=== PATIENT | female | born 1985 | race Caucasian/White ===

== ENCOUNTER 2022-12-26 10:58 | Outpatient (OUT) | payer BC, SELFPAY ==
--- NOTE | 2022-12-26 11:07 | US_ITS ---
The [address] [address] Patient Name: RIVAS ISRAEL MRN: [id number] date: 1985 Sex: F Assigned Patient Location: US Current Patient Location: US Accession/Order Number: [id number] Exam Date: 12/26/2022 11:08 Report Date: 12/26/2022 12:55 At the request of: MARSHA POWELL Procedure: US pelvis w/ transvaginal EXAMINATION: US pelvis w/ transvaginal HISTORY: Irregular Menstrual Cycle N92.6 ; breakthrough bleeding; evaluate IUD placement COMPARISON: Ultrasound pelvis 11/26/2021 TECHNIQUE: Transabdominal and/or transvaginal sonographic examination was performed as indicated by examination type. FINDINGS: UTERUS: Obliquely positioned IUD within cervix and lower uterine segment. Normal size, contour, and echotexture of the uterus. Uterus size: 7.9 x 4.6 x 4.0 cm ENDOMETRIUM: Normal homogeneous appearance. Endometrial thickness: 4 mm RIGHT OVARY: Normal size and appearance. Duplex Doppler demonstrates normal waveform and flow; resistive index 0.6. Ovary size: 3.6 x 2.7 x 1.6 cm LEFT OVARY: Normal size and appearance. Duplex Doppler demonstrates normal waveform and flow; resistive index 0.6. Ovary size: 3.9 x 2.1 x 1.4 cm CUL-DE-SAC: Unremarkable. No significant free fluid. BLADDER: Unremarkable. OTHER: Prominent vessels within left pelvis; possibly pelvic vascular congestion. US/US pelvis w/ transvaginal IMPRESSION: 1. Patient's IUD is positioned obliquely within the cervix and lower uterine segments which may contribute patient's symptoms. Electronically authenticated by: CORNELIUS MUJICA Date: 12/26/2022 12:55
== END 2022-12-26 10:59 | disposition home or self-care (01) ==
PROVIDERS: Visit Provider Obstetrics & Gynecology
DX: N92.6 Irregular menstruation, unspecified (principal); Z97.5 Presence of (intrauterine) contraceptive device
CPT/HCPCS: 76830; 76856

== ENCOUNTER 2024-10-20 15:13 | Outpatient (REF) | payer OTHER, SELFPAY ==
--- OUTSIDE RECORDS SUMMARY | 2024-10-20 09:00 | XMS_ITS | Encounter Summary ---
Author Organization [facility] Address [address] [facility] [place] [address] Care Team Providers Care Account Services Specialist Name Role Phone Natalie Guillen MD, IBCLC Primary Care Provid er Reason for Visit * Reason Comments Gynecologic Exam Encounter Details Date Type Department Care Team (Late st Contact Info) Description 10/20/2024 9:00 AM EDT Office Visit [facility] [address] [place] [address] Ethel Quiroz PA [address] [place] [address] Well woman exam with routine gynecological exam; Breast lump on right side at 9 o'clock position Social History Tobacco Use Types Packs/Day Years Used Date Smoking Tobacco: Never Smokeless Tobacco: Never Alcohol Use Standard Drinks/Week Comments Yes 5 (1 standard drink = 0.6 oz pur e alcohol) B1300 Health Literacy Answer Date Recor ded How often do you need to hav e someone help you when you read instructions, pamphlets, or other written material from your doctor or pharmacy? Never 04/14/2024 Humiliation, Afraid, Rape, and Kick questionnair e Answer Date Recorded Within the last year, have y ou been afraid of your partner or ex-partner? No 02/03/2023 Within the last year, have y ou been humiliated or emotionally abused in other ways by your partner or ex-partner? No Within the last year, have y ou been kicked, hit, slapped, or otherwise physically hurt by your partner or ex-partner? No 02/03/2023 Within the last year, have y ou been raped or forced to have any kind of sexual activity by your partner or ex-partner? No 02/03/2023 Social Connection and Isolat ion Panel [NHANES] Answer Date Recorded In a typical week, how many times do you talk on the phone with family, friends, or neighbors? Twice a week 04/14/2024 How often do you get togethe r with friends or relatives? Once a week 04/14/2024 How often do you attend chur or baptism services? Patient declined 04/14/2024 Do you belong to any clubs o r organizations such as taoism groups, unions, fraternal or athletic groups, or school groups? Yes 04/14/2024 How often do you attend meet ings of the clubs or organizations you belong to? More than 4 times per year 04/14/2024 Are you , , di vorced, , never , or living with a partner? 04/14/2024 AUDIT-C Answer Date Recorded Q1: How often do you have a drink containing alc ohol? 2-3 times a week 04/14/2024 Q2: How many drinks containi ng alcohol do you have on a typical day when you are drinking? 1 or 2 04/14/2024 Q3: How often do you have si x or more drinks on one occasion? Never 04/14/2024 Overall Financial Resource Strain (CARDIA) Answe r Date Recorded How hard is it for you to pa y for the very basics like food, housing, medical care, and heating? Not hard at all 04/14/2024 PHQ-2 Answer Date Recorded Patient Health Questionnaire-2 Score 0 06/24/2024 [facility] of Occupat ional Health - Occupational Stress Questionnaire Answer Date Recorded Do you feel stress - tense, restless, nervous, or anxious, or unable to sleep at night because your mind is troubled all the time - these days? Rather much 04/14/2024 Exercise Vital Sign Answer Date Recorde d On average, how many days pe r week do you engage in moderate to strenuous exercise (like a brisk walk)? 0 days 04/14/2024 On average, how many minutes do you engage in exercise at this level? 0 min 04/14/2024 Hunger Vital Sign Answer Date Recorded Within the past 12 months, y ou worried that your food would run out before you got the money to buy more. Never true 04/14/19 Within the past 12 months, t he food you bought just didn't last and you didn't have money to get more. Never true 04/14/2024 PRAPARE - Transportation Answer Date Re corded In the past 12 months, has l ack of transportation kept you from medical appointments or from getting medications? No 11/2024 In the past 12 months, has l ack of transportation kept you from meetings, work, or from getting things needed for daily living? No 04/14/2024 Housing Stability Vital Sign Answer Aman e Recorded In the last 12 months, was t here a time when you were not able to pay the mortgage or rent on time? No 02/03/2023 In the last 12 months, how many places have you lived? 1 02/03/2023 In the last 12 months, was t here a time when you did not have a steady place to sleep or slept in a chcf (including now)? No 02/03/2023 Housing Stability Vital Sign Answer Aman e Recorded In the last 12 months, was t here a time when you were not able to pay the mortgage or rent on time? No 04/14/2024 In the past 12 months, how m any times have you moved where you were living? 0 04/14/2024 At any time in the past 12 m [facility], were you homeless or living in a chcf (including now)? No 04/14/2024 Comments Unknown Sex and Gender Information Value Date Recorded Sex Assigned at Female 12/30/2022 9:37 AM EDT Legal Sex Female 11:39 PM EDT Gender Identity Female 12/30/2022 9:37 AM EDT Sexual Orientation Not on file documented as of this encounter Last Filed Vital Signs Vital Sign Reading Time Taken Comments Blood Pressure 118/72 10/20/2024 9:56 AM EDT Pulse - - Temperature - - Respiratory Rate - - Oxygen Saturation - - Inhaled Oxygen Concentration - - Weight 59 kg (130 lb) 10/20/2024 9:56 AM EDT Height 170.2 cm (5' 7 ) 10/20/2024 9:56 AM EDT Body Mass Index 20.36 10/20/2024 9:56 AM EDT documented in this encounter Progress Notes * STEVE Avila - 10/20/2024 9:00 AM EDT Reason for Appointment: Patient ID: Monique Olivares is a 39 y.o. female who presents for Gynecologic Exam Patient presents today for Annual Exam. MEDICATIONS Current Outpatient Medications Medication Instructions hydrOXYzine HCl (ATARAX) 10 mg, Oral, Every 8 hours PRN loratadine (Claritin) 10 MG tablet Every 24 hours sertraline (ZOLOFT) 25 mg, Oral, Daily ALLERGIES Allergies Allergen Reactions Sodium Tetradecyl Sulfate Other, Shortness of breath and Anaphylaxis Other reaction(s): Respiratory Issues Other Reaction(s): Other: See Comments Esomeprazole Itching Nitrofurantoin Itching Other reaction(s): Unknown Other reaction(s): Unknown Other reaction(s): Unknown Other Reaction(s): Rash Other reaction(s): Unknown Other reaction(s): Unknown Other reaction(s): Unknown Other reaction(s): Unknown Other reaction(s): Unknown Propylene Glycol Itching and Rash Other reaction(s): Dermatitis Other reaction(s): Dermatitis Other reaction(s): Dermatitis Ranitidine Itching Other reaction(s): Unknown Effexor [Venlafaxine] Hot flash, presyncope Kiwi Extract Unknown Other reaction(s): Other (See Comments) Soy Allergy (Obsolete) felt like I had asthma attack after drinking soy milk Nickel Unknown and Rash Other reaction(s): Dermatitis PROBLEMS Active Ambulatory Problems Diagnosis Date Noted Anxiety 07/12/2021 Seasonal allergies 02/03/2023 Thyroid nodule 09/04/2016 Varicose veins of lower extremity 01/25/2021 Folliculitis 08/26/2023 Lymphedema 08/26/2023 Chondromalacia, patella, 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 10/03/2023 Acne vulgaris 04/16/2024 Sterilization consult 09/20/2024 Seasonal affective disorder 09/20/2024 History of blood clots 09/20/2024 History of defect 09/20/2024 Resolved Ambulatory Problems Diagnosis Date Noted AVM (arteriovenous malformation) ([facility]) 05/05/2019 Fibroadenoma of breast, right 05/17/2019 Fibrocystic breast changes, bilateral 05/17/2019 Generalized anxiety disorder 02/03/2023 History of vascular surgery 07/08/2011 Impairment of balance 01/25/2021 Skin lesion 01/25/2021 Acute pain of left knee 09/26/2023 Past Medical History: Diagnosis Date 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[facility]) Depression History of being hospitalized 2006 Intrauterine device surveillance HISTORY PAST MEDICAL HISTORY SOCIAL HISTORY Past Medical History: Diagnosis Date Anxiety 07/12/2021 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 Intrauterine device surveillance Thyroid nodule Thyroid nodules bilaterally Social History Tobacco Use Smoking status: Never Smokeless tobacco: Never Vaping Use Vaping status: Never Used Substance Use Topics Alcohol use: Yes Alcohol/week: 5.0 standard drinks of alcohol Types: 5 Cans of beer per week Drug use: Never FAMILY HISTORY Family History Problem Relation Name Age of Onset Arthritis Mother Beatriz Hypertension Mother Beatriz Heart disease Father Gabino Hypertension Father Gabino Kidney disease Father Gabino Hypertension Maternal Grandfather Cancer Paternal Grandmother SURGICAL HISTORY Past Surgical History: Procedure Laterality Date BREAST BIOPSY x2 OTHER SURGICAL HISTORY first rib ressection US BIOPSY NEEDLE THYROID 2019 REVIEW OF SYSTEMS Review of Systems: Review of Systems Constitutional: Negative. HENT: Negative. Eyes: Negative. Respiratory: Negative. Cardiovascular: Negative. Gastrointestinal: Negative. Genitourinary: Negative. Musculoskeletal: Negative. Skin: Negative. Neurological: Negative. All other systems reviewed and are negative. Hematological: Negative. Endocrine: Negative. Allergic/Immunologic: Negative. OBJECTIVE Objective: Physical Exam Constitutional: Appearance: Normal appearance. She is well-developed. Genitourinary: Vulva normal. Right Adnexa: not tender and no mass present. Left Adnexa: not tender and no mass present. No cervical discharge. Breasts: Breasts are soft. Right: Normal. Left: Normal. HENT: Head: Normocephalic. Nose: Nose normal. Mouth/Throat: Mouth: Mucous membranes are moist. Cardiovascular: Rate and Rhythm: Normal rate and regular rhythm. Pulmonary: Effort: Pulmonary effort is normal. Breath sounds: Normal breath sounds. Abdominal: General: Bowel sounds are normal. There is no distension. Palpations: Abdomen is soft. Tenderness: There is no abdominal tenderness. There is no guarding or rebound. Musculoskeletal: General: No swelling. Normal range of motion. Cervical back: Normal range of motion. Right lower leg: No edema. Left lower leg: No edema. Neurological: General: No focal deficit present. Mental Status: She is alert and oriented to person, place, and time. Skin: General: Skin is warm and dry. Psychiatric: Mood and Affect: Mood normal. Behavior: Behavior normal. Vitals and nursing note reviewed. Exam conducted with a die machine operator present. Vitals: Estimated body mass index is 20.36 kg/m² as calculated from the following: Height as of this encounter: 5' 7 . Weight as of this encounter: 130 lb. BP: 118/72 Patient's last menstrual period was 10/12/2024 (exact date). ASSESSMENT & PLAN ICD-10-CM 1. Well woman exam with routine gynecological exam Z01.419 THIN PREP TIS PAP AND HR HPV DNA 2. Breast lump on right side at 9 o'clock position N63.15 Right breast US complete Annual: Patient presents today for an annual exam. Patient states she is doing well and has no complaints. Pap was obtained without difficulty and patient mammogram was done on 07/05/2024 w/negative results.Pt does have a questionable spot on her right breast she would like Ethel Quiroz to take a look at. Ptstates she does have dense breasts however, she would like Ethel Quiroz to exam that spot. Ethel Quiroz or ernesto an US of right breast at the 9 o'clock. Orders Placed This Encounter Procedures Right breast US complete Follow Up: Patient is to return in one year for annual unless needed otherwise. Documented by Natty Andrea MA on behalf of: STEVE Avila documented in this encounter Plan of Treatment Upcoming Encounters Date Type Department Care Team (Late st Contact Info) Description 11/11/2024 8:50 AM EDT Consult [facility] [address] [place] [address] Rashaun Dotson, DO [address] [place] [address] 07/07/2025 9:30 AM EDT Ancillary Procedure [facility] [place] [address] [place] [phone] 10/24/2025 9:00 AM EDT Procedure Visit [facility] [address] [place] [address] Ethel Quiroz PA [address] [place], [place] [phone] Scheduled Orders Name Type Priority Associated Diagnoses Orde r Schedule THIN PREP TIS PAP AND HR HPV DNA Pathology and Cytology Routine Well woman exam with routine gynecological exam Ordered: 10/20/2024 Right breast US complete Imaging Routine Breast lump on right side at 9 o'clock position Expected: 10/20/2024 (Approximate), Expires: 12/21/2025 documented as of this encounter Goals Goal Patient Goal Type Associated Problems Recent Progress Patient-Stated? Author Help patient manage antidepressant medication Care Plan Patient on antidepressant monitoring plan No Natalie Guillen MD, IBCLC Baseline PHQ-9 Care Plan Baseline PHQ-9 No Natalie Guillen MD, IBCLC documented as of this encounter Visit Diagnoses Diagnosis Well woman exam with routine gynecological exam Routine gynecological examination Breast lump on right side at 9 o'clock position Lump or mass in breast documented in this encounter Additional Health Concerns Active Problems Noted Date Diagnosed Date Patient on antidepressant monitoring plan 2024 Baseline PHQ-9 06/24/2024 documented as of this encounter Care Teams Account Services Specialist Relationship Specialty Start Date End Date Natalie Guillen MD, IBCLC [address] [place] [address] PCP - General Family Medicine 04/13/24 documented as of this encounter
--- OUTSIDE RECORDS SUMMARY | 2024-10-20 15:16 | XMS_ITS | Encounter Summary ---
Author Organization [facility] Address [address] [facility] [place] [address] Care Team Providers Care Skin Toggler Name Role Phone aNtalie Guillen MD, IBCLC Primary Care Provid er Encounter Details Date Type Department Care Team (Late st Contact Info) Description 09/13/2024 Results Follow-Up [facility] [address] [place] [address] Natalie Guillen MD, IBCLC [address] [place], [place] [phone] Social History Tobacco Use Types Packs/Day Years [...] How often do you attend chur or pentecostal services? Patient declined 04/14/2024 Do you belong to any clubs o r organizations such as mandaen groups, unions, fraternal or athletic groups, or [...] Recorded Patient Health Questionnaire-2 Score 0 06/24/2024 [facility] Occupat ional Health - Occupational Stress [...] money to buy more. Never true 04/14/19 25 Within the past 12 months, t he [...] place to sleep or slept in a assisted (including now)? No 02/03/2023 Housing Stability Vital Sign Answer Aman e Recorded In the last 12 months, was t here a time when you were not able to pay the mortgage or rent on time? No 04/14/2024 In the past 12 months, how m any times have you moved where you were living? 0 04/14/2024 At any time in the past [address] [facility], were you homeless or living in a assisted (including now)? No 04/14/2024 Comments Unknown Sex and Gender Information Value Date Recorded Sex Assigned at Female 12/30/2022 9:37 AM EDT Legal Sex Female 11:39 PM EDT Gender Identity Female 12/30/2022 9:37 AM EDT Sexual Orientation Not on file documented as of this encounter Plan of Treatment Upcoming Encounters Date Type Department Care Team (Late st Contact Info) Description 11/11/2024 8:50 AM EDT Consult [facility] [address] [place] [phone] Rashaun Dotson, DO [address] [place] [address] 07/07/2025 9:30 AM EDT Ancillary Procedure [facility] [place] [address] [place] [address] 10/24/2025 9:00 AM EDT Procedure Visit [facility] [address] [place] [address] Ethel Quiroz PA [address] [place] [address] documented as of this encounter Goals Goal Patient Goal Type Associated Problems Recent Progress Patient-Stated? Author Help patient manage antidepressant medication Care Plan Patient on antidepressant monitoring plan No Natalie Guillen MD, IBCLC Baseline PHQ-9 Care Plan Baseline PHQ-9 No Natalie Guillen MD, IBCLC documented as of this encounter Visit Diagnoses Not on filedocumented in this encounter Additional Health Concerns Active Problems Noted Date Diagnosed Date Patient on antidepressant monitoring plan 2024 Baseline PHQ-9 06/24/2024 documented as of this encounter Care Teams Skin Toggler Relationship Specialty Start Date End Date Natalie Guillen MD, IBCLC [address] [place] [address] PCP - General Family Medicine 04/13/24 documented as of this encounter
--- OUTSIDE RECORDS SUMMARY | 2024-10-20 15:16 | XMS_ITS | Encounter Summary ---
Author Organization [facility] Address [address] [place] [id number] Care Team Providers Care Mirror Specialist Name Role Phone Dawson Hunter Primary Care Provider [phone] Source Comments In the event this information is protected by the Federal Confidentiality of Alcohol and Drug AbusePatient Records regulations: The Federal rules restrict any use of the information to criminally investigate or prosecute any alcohol or drug abuse patient.[facility] Encounter Details Date Type Department Care Team (Late st Contact Info) Description 03/15/2024 Patient [facility] [address] [address] [place] Vance RPh At your next appointment, choose [facility]. Social History Tobacco Use Types Packs/Day Years Used Date Smoking Tobacco: Never Assessed Comments Unknown Sex and Gender Information Value Date Recorded Sex Assigned at Not on file Legal Sex Female 9:28 AM EST Gender Identity Not on file Sexual Orientation Not on file documented as of this encounter Plan of Treatment Not on file documented as of this encounter Visit Diagnoses Not on filedocumented in this encounter Care Teams Mirror Specialist Relationship Specialty Start Date End Date Dawson Hunter [address] [place] [id number] PCP - General 07/15/00 documented as of this encounter
--- OUTSIDE RECORDS SUMMARY | 2024-10-20 15:16 | XMS_ITS | Clinical Summary ---
Author Organization [facility] Address [address] [place] [address] Care Team Providers Care Cheese Grader Name Role Phone Darnell Lyons MD Primary Care Provider Darnell Lyons MD Unavailable [phone] Darnell Lyons MD Unavailable [phone] AugustLyndsay MD Unavailable [phone] Allergies Active Allergy Reactions Criticality Noted Date Comments Kiwi Other (See Comments) 01/25/2021 Esomeprazole Magnesium Itching 08/31/2016 Nickel Dermatitis 02/03/2015 Nitrofurantoin Monohyd/M-Cryst Itching 06/12/2018 Other reaction(s): Unknown Propylene Glycol Dermatitis 02/03/2015 Ranitidine Itching 06/29/2016 Sodium Tetradecyl Sulfate Shortness Of Breath High 02/03/2015 Soy 06/18/2018 felt like I had asthma attack after drinking soy milk Medications EPINEPHrine (EPIPEN) 0.3 mg/0.3 mL AtIn Inject 3 mg into the shoulder, thigh, or buttocks as needed. 8 Active loratadine (CLARITIN ORAL) Take by mouth . Active sertraline (ZOLOFT) 25 MG tablet Take 25 mg by mouth nightly . 1 Active levonorgestreL (MIRENA) 20 mcg/24 hours (7 yrs) 52 mg IUD 1 (one) each by Intrauterine route once . Active miSOPROStoL (CYTOTEC) 200 MCG tablet Break [address] tablets [address] half and place in vagina night before procedure . 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 Fibrocystic breast changes, bilateral 05/17/2019 Resolved Problems Problem Noted Date Diagnosed Date Resolved Date Status post excisional biopsy 11/05/2018 10/18/2020 Left breast mass 11/05/2018 05/17/2019 Fibroadenoma of breast, right 06/03/2017 11/05/2018 Fibrocystic breast changes, right 06/03/2017 10/18/2020 Family History Medical History Relation Comments No Known Problems Brother Thyroid cancer Cousin Heart disease Father Liver cancer Maternal Grandmother No Known Problems Mother No Known Problems Other Breast cancer Paternal Grandmother No Known Problems Sister Anesthesia problems Neg Hx Clotting disorder Neg Hx Deep vein thrombosis Neg Hx Pulmonary embolism Neg Hx Surgical complications Neg Hx Relation Status Comments Brother Cousin Alive Father Alive Maternal Grandmother (Age 84) Mother Alive Other Paternal Grandmother Alive Sister Social History Tobacco Use Types Packs/Day Years Used Date Smoking Tobacco: Never Smokeless Tobacco: Never Tobacco Cessation:Counseling Given: Not Answered Alcohol Use Standard Drinks/Week Comments Yes 0 (1 standard drink = 0.6 oz pur e alcohol) weekly Comments No Sex and Gender Information Value Date Recorded Sex Assigned at Not on file Legal Sex Female 6:54 AM EDT Gender Identity Female 11/21/2017 1:32 PM EDT Sexual Orientation Choose not to disclose 2018 6:17 PM EDT 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 file Not on file Not on file Last Filed Vital Signs Vital Sign Reading Time Taken Comments Blood Pressure 135/73 12/11/2021 6:12 PM EDT Pulse 118 12/11/2021 6:12 PM EDT Temperature 36.7 C (98.1 F) 12/11/2021 6:12 PM EDT Respiratory Rate 18 12/11/2021 6:12 PM EDT Oxygen Saturation 100% 12/11/2021 6:12 PM EDT Inhaled Oxygen Concentration - - Weight 51.3 kg (113 lb) 12/11/2021 6:12 PM EDT Height 170.2 cm (5' 7 ) 12/11/2021 6:12 PM EDT Body Mass Index 17.7 12/11/2021 6:12 PM EDT Plan of Treatment Health Maintenance Due Date Last Done Comments Depression Screening/Follow-Up (PHQ-2/9) 1995 Wellness Visit 07/12/2022 07/12/2021, 10/05, 12/21/2018 Mammogram 2023 06/18/2018, 10/2018, 09/06/2016, Additional history exists Pap Smear 10/19/2023 10/18/2020, 12/06, 05/31/2016, Additional history exists COVID-19 Vaccine ( season) 2023 01/27/2021, 07/06/2020 Cervical Cancer Screening 12/22/2023 HPV/Cotest 12/22/2023 12/21/2018 Tetanus: Every 10yrs 10/05/2024 10/05/2014, 10/06/19 14 Influenza Vaccine (#1) 2024 , 01/01/2020, 01/28/2019, Additional history exists HIV Screening Completed 01/23/2015 Hepatitis C Screening Completed 01/23/2015 Pneumococcal Vaccine: Ped or At-Risk Aged Out No longer eligible based on patient's age to complete this topic Procedures Procedure Name Priority Date/Time Associated Diagnosis Comments THINPREP PAP SMEAR Routine 10/18/2020 12 :04 PM EDT Screening for malignant neoplasm of cervix REFLEX ONLY -- HIGH RISK HPV WITH GENOTYPE 16,18 Routine 12/21/2018 10:14 AM EDT Screening for malignant neoplasm of cervix MM BREAST SPECIMEN Routine 06/18/2018 10 :23 AM EDT HIV 1/2 SCREEN (4TH GENERATION) Routine 01/23/2015 10:39 AM EDT Routine general medical examination at a health care facility HEPATITIS C ANTIBODY Routine 01/23/2015 10:39 AM EDT Routine general medical examination at a health care facility from Last 3 Months or Most Recently Relevant to Health Maintenance Results * Thinprep Pap Smear (10/18/2020 12:04 PM EDT) Case Report Gynecologic Cytology Report Case: [id number] Authorizing Provider: Arianna Holliday CNP Collected: 10/18/2020 12:04 PM [facility]ing [facility]DROGRAP[facility] Received: 10/19/2020 08:23 PM [facility] First Screen: Sendy Oseguera [facility] Rescreen: Rose Patel Specimen: THINPREP PAP SMEAR, Cervix / Endocervix 10/30/2020 8:57 PM EDT [facility] LMP 09/29/20 10/30/2020 8:57 PM EDT [facility] Interpretation Negative for intraepithelial lesion or malignancy 10/30/2020 8:57 PM EDT [facility] at 2057 EDT Specimen Adequacy Satisfactory for evaluation; transformation zone/endocervical component present 10/30/2020 8:57 PM EDT [facility] Educational Note The Pap smear is a screening test for the detection of cervical cancer and its precursor lesions. False positive and false negative results can occur. The test should be performed at regular intervals, and positive results should be confirmed before definitive therapy. Additional testing methods may be helpful in detecting abnormalities or in clinical management. The specimen has been analyzed by the ThinPrep imaging system, an automated imaging and review system which assists the laboratory in evaluating cells on ThinPrep tests. Following automated imaging selected danielson from every slide are reviewed by a marking room supervisor. Specimen processing and Primary Screening performed at: [facility] - [address] [place] [id number] 10/30/2020 8:57 PM EDT [facility] IUD Yes 10/30/2020 8:57 PM EDT [facility] Pap, Liquid Based ENDOCERVICAL STRUCTURE / Unknown 10/18/2020 12:04 PM EDT 10/19/2020 8:23 PM EDT Arianna Holliday CNP PATHOLOGY/CYTOLOGY ORDERABLES Final Result [facility] [place] [address] * High Risk HPV with Genotype 16,18 (12/21/2018 10:14 AM EDT) HPV 16 Negative Negative 12/24/2018 1:11 PM EDT [facility] HPV 18 Negative Negative 12/24/2018 1:11 PM EDT [facility] HPV, Other HR Types Negative Negative 12/24/2018 1:11 PM EDT [facility] Pap, Liquid Based ENDOCERVICAL STRUCTURE / Unknown 12/21/2018 10:14 AM EDT 12/22/2018 4:33 PM EDT Narrative [facility] - 12/24/2018 1:11 PM EDT Assay performed using Micheal Yesenia 4800 system utilizing Real-Time PCR to amplify target HPV DNA. This system specifically identifies HPV16 and HPV18 while concurrently detecting the other twelve high risk types (31,33,35,39,45,51,52,56,58,59,66,68). us Jennifer Farley MANAGEMENT TECH BODY FLUIDS AND S TOOLS ORDERABLES Final Result Performing Organization Address [facility] Co de Phone Number [facility] [place] [address] * Mammography Breast Specimen (06/18/2018 10:23 AM EDT) Anatomical Region Laterality Modality Breast N/A Mammography 06/18/2018 10:5 8 AM EDT Impressions 06/18/2018 11:29 AM EDT A single specimen radiograph was submitted. The sample of breast tissue does contain the biopsy clip at the coordinates I-8. This is located within 1.6 mm of the margin of the sample. DPZ/ads Workstation ID: [id number] Narrative 06/18/2018 11:29 AM EDT EXAMINATION: BREAST SPECIMEN RADIOGRAPH HISTORY: Right breast mass excision with intraoperative ultrasound; specimen imaging Procedure Note Paul Reis MD - 06/18/2018 EXAMINATION: BREAST SPECIMEN RADIOGRAPH HISTORY: Right breast mass excision with intraoperative ultrasound; specimenimaging IMPRESSION: A single specimen radiograph was submitted. The sample of breast tissuedoes contain the biopsy clip at the coordinates I-8. This is locatedwithin 1.6 mm of the margin of the sample. CARL/paul Workstation ID: [id number] us Aurora Martinez MD IMG MAMMOGRAPHY ORDERAB LES Final Result * Hepatitis C Antibody (01/23/2015 10:39 AM EDT) Hepatitis C Ab Negative Negative 01/23/2015 7:51 PM EDT [facility] Blood BLOOD SPECIMEN / Unknown Venipuncture / Unknown 01/23/2015 10:39 AM EDT 01/23/2015 10:39 AM EDT Erika Quintero [facility] BLOOD ORDERABLE S Final Result Performing Organization Address [facility]/ZIP Co de Phone Number [facility] [address] [place] [phone] * HIV Antibody (HIV1/HIV2) (01/23/2015 10:39 AM EDT) HIV 1-2 Screen Negative Negative 01/23/2015 7:51 PM EDT [facility] Blood BLOOD SPECIMEN / Unknown Venipuncture / Unknown 01/23/2015 10:39 AM EDT 01/23/2015 10:39 AM EDT Erika Quintero [facility] BLOOD ORDERABLE S Final Result Performing Organization Address City/[facility]/ZIP Co de Phone Number [facility] [address] [place] [phone] from Last 3 Months or Most Recently Relevant to Health Maintenance Insurance [facility] H[employer]/CHOICE PLUS/JASWANT/JASWANT PLUS [employer] [employer] HMO/CHOICE PLUS/JASWANT/JASWANT PLUS Care Teams Cheese Grader Relationship Specialty Start Date End Date Darnell Lyons MD [address] [place] [address] PCP - General Family Medicine 09/06/16 Darnell Lyons MD [address] [place] [address] 09/06/16 Darnell Lyons MD [address] [place] [address] 07/08/15August, Lyndsay Macedo MD [address] [facility] [address] [place] [address] Obstetrics/Gynecology 12/24/21
--- OUTSIDE RECORDS SUMMARY | 2024-10-20 15:16 | XMS_ITS | Encounter Summary ---
Author Organization [facility] Address [address] [place] [address] Care Team Providers Care Radiation Officer Name Role Phone Natalie Guillen MD, IBCLC Primary Care Provid er Encounter Details Date Type Department Care Team (Latest Contact Info) Description 10/16/2024 Travel Social History Tobacco Use Types Packs/Day Years [...] 04/14/2024 How often do you attend chur ch or religion services? Patient declined 04/14/2024 Do you belong to any clubs o r organizations such as tenriism groups, unions, fraternal or athletic groups, or [...] Recorded Patient Health Questionnaire-2 Score 0 06/24/2024 [facility] - Occupational [...] place to sleep or slept in a snf (including now)? No 02/03/2023 Housing Stability Vital Sign Answer Aman e Recorded In the last 12 months, was t here a time when you were not able to pay the mortgage or rent on time? No 04/14/2024 In the past 12 months, how m any times have you moved where you were living? 0 04/14/2024 At any time in the past 12 m [facility], were you homeless or living in a snf (including now)? No 04/14/2024 Comments Unknown Sex [...] Description 11/11/2024 8:50 AM EDT Consult [facility] [address] [place] [address] Rashaun Dotson, DO [address] [place], [place] [id number] 07/07/2025 9:30 AM EDT Ancillary Procedure [facility] [place] [address] [place] [id number] 10/24/2025 9:00 AM EDT Procedure Visit [facility] [address] [place] [address] Ethel Quiroz PA [address] [place] [address] [place] [address] documented as of this encounter Goals Goal [...] documented as of this encounter Care Teams Radiation Officer Relationship Specialty Start Date End Date Natalie Guillen MD, IBCLC [address] [place] [phone] PCP - General Family Medicine 04/13/24 documented as of this encounter
--- OUTSIDE RECORDS SUMMARY | 2024-10-20 15:16 | XMS_ITS | Encounter Summary ---
Author Organization [facility] Address [address] [place] [address] Care Team Providers Care Legal Writing Professor Name Role Phone Dale Dawson Vela Primary Care Provider [phone] Source Comments In the event this information is protected by the Federal Confidentiality of Alcohol and Drug AbusePatient Records regulations: The Federal rules restrict any use of the information to criminally investigate or prosecute any alcohol or drug abuse patient.[facility] Encounter Details Date Type Department Care Team (Late st Contact Info) Description 09/20/2024 Get Medical Advice Colorectal Surgery [address] [place] [address] [place] [id number] [place] [address] Error in notes Social History Tobacco Use Types Packs/Day Years Used Date Smoking Tobacco: Never Smokeless Tobacco: Never Area Deprivation Index Answer Date Lukas rded National Score (1-100), lower number is lower ri sk 39 03/23/2024 State Score (1-10), lower number is lower risk 2 03/23/2024 Data from: https://www.neighborhoodatlas.[facility]/. Last address used for calculation [address] [place] [place] 03/23/2024 Comments No Sex and Gender Information Value Date Recorded Sex Assigned at Not on file Legal Sex Female 9:28 AM EST Gender Identity Not on file Sexual Orientation Not on file documented as of this encounter Plan of Treatment Not on file documented as of this encounter Visit Diagnoses Not on filedocumented in this encounter Care Teams Legal Writing Professor Relationship Specialty Start Date End Date Dawson Hunter [address] [place] [address] PCP - General 07/15/00 documented as of this encounter
--- OUTSIDE RECORDS SUMMARY | 2024-10-20 15:16 | XMS_ITS | Clinical Summary ---
Author Organization [facility] Address [address] [place] [address] Phone Care Team Providers Care Cnc Lathe Programmer Name Role Phone Unavailable Primary Care Provider Unavailabl e Social History Tobacco Use Types Packs/Day Years Used Date Smoking Tobacco: Never Assessed Comments Unknown Sex and Gender Information Value Date Recorded Sex Assigned at Not on file Legal Sex Female 11:02 AM EDT Gender Identity Not on file Sexual Orientation Not on file Plan of Treatment Health Maintenance Due Date Last Done Comments Lipid Panel 1983 MMR Vaccines (1 of 1 - Standard series) 10/06/1984 Varicella Vaccines (1 of 2 - 13+ 2-dose series) 10/06/1996 Hepatitis C Screening 10/06/2001 Hepatitis B Vaccines (1 of 3 - 19+ 3-dose series) 10/06/2002 HPV/Cotest 10/06/2004 DTaP/Tdap/Td Vaccines (1 - Tdap) 10/06/2005 Cervical Cancer Screening 10/19/2023 Pap Smear 10/19/2023 10/18/2020 COVID-19 Vaccine ( season) 2023 07/06/2020 Mammogram 06/02/2024 06/02/2023, 06/02/2023 Yearly Adult Physical 08/27/2024 08/27/2023 , 07/12/2021, 10/18/2020, Additional history exists Influenza Vaccine (#1) 2024 , 01/06/2021, 01/01/2020, Additional history exists Zoster Vaccines (1 of 2) 10/06/2033 HIV Screening Completed 01/23/2015 HIB Vaccines Aged Out No longer eligi ble based on patient's age to complete this topic HPV Vaccines (No Doses Required) Completed Hepatitis A Vaccines Aged Out No long er eligible based on patient's age to complete this topic IPV Vaccines Aged Out No longer eligi ble based on patient's age to complete this topic Meningococcal Vaccine Aged Out No stanley chaparro eligible based on patient's age to complete this topic Pneumococcal Vaccine: Pediatrics and At-Risk Adult Patients Aged Out No longer eligible based on patient's age to complete this topic Rotavirus Vaccines Aged Out No longer eligible based on patient's age to complete this topic Insurance [facility]
--- OUTSIDE RECORDS SUMMARY | 2024-10-20 15:16 | XMS_ITS | Encounter Summary ---
Author Organization [facility] Address [address] [place] [address] Care Team Providers Care Suede Cleaner Name Role Phone Dawson Hunter Primary Care Provider [phone] Source Comments In the event this information is protected by the Federal Confidentiality of Alcohol and Drug AbusePatient Records regulations: The Federal rules restrict any use of the information to criminally investigate or prosecute any alcohol or drug abuse patient.[facility] Encounter Details Date Type Department Care Team (Late st Contact Info) Description 07/28/2024 Patient Msg Dermat[place] [address] [place] [address] Maru Shafer APRN.CHIEF SCIENTIST [address] [facility] [place] [address] Appointment Request Social History Tobacco Use Types Packs/Day Years Used Date Smoking Tobacco: Never Assessed Area Deprivation Index Answer Date Lukas rded National Score (1-100), lower number is lower ri sk 39 03/23/2024 State Score (1-10), lower number is lower risk 2 03/23/2024 Data from: https://www.neighborhoodatlas.medicine.[facility].edu/. Last address used for calculation [address] [place] 03/23/2024 Comments Unknown Sex and Gender Information Value Date Recorded Sex Assigned at Not on file Legal Sex Female 9:28 AM EST Gender Identity Not on file Sexual Orientation Not on file documented as of this encounter Plan of Treatment Not on file documented as of this encounter Visit Diagnoses Not on filedocumented in this encounter Care Teams Suede Cleaner Relationship Specialty Start Date End Date Dawson uHnter NPMesfin: [phone] [address] [place] [address] PCP - General 07/15/00 documented as of this encounter
--- OUTSIDE RECORDS SUMMARY | 2024-10-20 15:17 | XMS_ITS | Clinical Summary ---
Author Organization [facility] Address [address] [facility] [place] [address] Care Team Providers Care Eye Technician Name Role Phone Natalie Guillen MD, IBCLC Primary Care Provid er Allergies Active Allergy Reactions Criticality Noted Date Comments Venlafaxine 04/16/2024 Hot flash, presyncope Esomeprazole Itching Medium 08/31/2016 Kiwi Extract Unknown 01/25/2021 Other reaction(s): Other (See Comments) Nickel Unknown,Rash Low 02/03/2015 Other reaction(s): Dermatitis Nitrofurantoin Itching Medium 06/12/2018 Other reaction(s): Unknown Other reaction(s): Unknown Other reaction(s): Unknown Other Reaction(s): Rash Other reaction(s): Unknown Other reaction(s): Unknown Other reaction(s): Unknown Other reaction(s): Unknown Other reaction(s): Unknown Propylene Glycol Itching,Rash Medium 07/09/2011 Other reaction(s): Dermatitis Other reaction(s): Dermatitis Other reaction(s): Dermatitis Ranitidine Itching Medium 06/29/2016 Other reaction(s): Unknown Sodium Tetradecyl Sulfate Other,Shortness of breath,Anaphylaxis High 07/09/2011 Other reaction(s): Respiratory Issues Other Reaction(s): Other: See Comments Soy Allergy (Obsolete) 06/18/2018 felt like I had asthma attack after drinking soy milk Medications loratadine (Claritin) 10 MG tablet 1 (one) time each day at the same time. Active hydrOXYzine HCl (Atarax) 10 MG tabletIndicatio ns:Anxiety Take 1 tablet (10 mg) by mouth every 8 (eight) hours if needed for anxiety 30 tablet 5 Active sertraline (Zoloft) 25 MG tabletIndicatio ns:Anxiety Take 1 tablet (25 mg) by mouth Daily 90 tablet 3 5 Active Drospirenone (Slynd) 4 MG tabletIndicatio ns:Sterilizatio n consult Take 1 tablet by mouth Daily 84 tablet 3 5 10/21/19 25 Discontinu ed(Therapy completed) Active Problems Problem Noted Date Diagnosed Date Sterilization consult 09/20/2024 Seasonal affective disorder 09/20/2024 History of blood clots 09/20/2024 History of defect 09/20/2024 Acne vulgaris 04/16/2024 Overview (04/16/2024): Taking spironolactone, prescribed by endocrinology Assessment & Plan (04/16/2024 10:55 AM EST): She has been on spironolactone for three months for chin hair but has not noticed significant improvement. She will continue the medication and may increase the dosage as discussed with her director of physical security. Patellofemoral disorder of left knee 10/03/2023 Chondromalacia, patella, left 09/26/2023 Folliculitis 08/26/2023 Lymphedema 08/26/2023 Seasonal allergies 02/03/2023 Anxiety 07/12/2021 Overview (06/24/2024): Started sertraline 25mg in 2020 Depressive symptoms started Feb 2024 Ativan didn't work fast enough Xanax caused worsening symptoms the following day Apr 2024: increase to 37.5mg, then gradually increase to 50mg June 2024: stable on sertraline 50mg Continue sertraline 50mg Assessment & Plan (04/16/2024 10:55 AM EST): Her anxiety has been exacerbated recently, with daily symptoms. She has been on sertraline 25 mg since summer 2020 but reports it is no longer as effective. She will increase her sertraline dosage to 50 mg daily, starting with 1.5 tablets (37.5 mg) for two weeks before increasing to 2 tablets (50 mg). Potential side effects, including nausea and impaired sexual function, were discussed. Hydroxyzine will be prescribed as needed for severe anxiety episodes, with a warning about potential drowsiness. . 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 Encounters Date Type Department Care Team Description 10/20/2024 9:00 AM EDT Office Visit [facility] [place] [address] [place] [address] Ethel Quiroz PA Well woman exam with routine gynecological exam; Breast lump on right side at 9 o'clock position 10/20/2024 Bamboo flowsheet [facility] [place] [address] Ethel Quiroz PA 10/16/2024 Travel 09/20/2024 9:40 AM EDT Office Visit [facility] [place] [address] Rashaun Dotson DO Sterilization consult; Seasonal affective disorder ; History of blood clots; History of defect 09/20/2024 Bamboo flowsheet [facility] [address] [place] [address] Rashaun Dotson DO 09/13/2024 Results Follow-Up [facility] [address] [place] [phone] Natalie Guillen MD, IBCLC 09/13/2024 Travel from Last 3 Months Immunizations Immunization Administration Dates Next Due Influenza, Seasonal, Quadrivalent, Adjuvanted Influenza, injectable, quadrivalent 01/05/2018,1 Influenza, injectable, quadrivalent, preservativ e free 01/06/2021,01/01/2020 Influenza, seasonal, injectable 02/10/2023 Nasir SARS-CoV-2 07/06/2020 Tetanus toxoid, adsorbed 10/05/2013 Family History Medical History Relation Name Comments Heart disease Father Gabino Hypertension Father Gabino Kidney disease Father Gabino Hypertension Maternal Grandfather Arthritis Mother Beatriz Hypertension Mother Beatriz Cancer Paternal Grandmother Relation Name Status Comments Father Gabino Alive Maternal Grandfather Mother Beatriz Alive Paternal Grandmother Social History Tobacco Use Types Packs/Day Years Used Date Smoking Tobacco: Never Smokeless Tobacco: Never Tobacco Cessation:Counseling Given: Not Answered Alcohol Use Standard Drinks/Week Comments Yes 5 [...] week 04/14/2024 How often do you attend [facility] or taoist services? Patient declined 04/14/2024 Do you belong to any clubs o r organizations such as islam groups, unions, fraternal or athletic groups, or [...] Recorded Patient Health Questionnaire-2 Score 0 06/24/2024 [facility] - Occupational Stress [...] any time in the past 12 m [facility], were you homeless or living in a snf (including now)? No 04/14/2024 Comments Unknown Sex and Gender Information Value Date Recorded Sex Assigned at Female 12/30/2022 9:37 AM EDT Legal Sex Female 11:39 PM EDT Gender Identity Female 12/30/2022 9:37 AM EDT Sexual Orientation Not on file Last Filed Vital Signs Vital Sign Reading Time Taken Comments Blood Pressure 118/72 10/20/2024 9:56 AM EDT Pulse 66 06/24/2024 8:44 AM EDT Temperature 36.2 C (97.2 F) 06/24/2024 8:44 AM EDT Respiratory Rate - - Oxygen Saturation 99% 06/24/2024 8:44 AM EDT Inhaled Oxygen Concentration - - Weight 59 kg (130 lb) 10/20/2024 9:56 AM EDT Height 170.2 cm (5' 7 ) 10/20/2024 9:56 AM EDT Body Mass Index 20.36 10/20/2024 9:56 AM EDT Plan of Treatment Upcoming Encounters Date Type Department Care Team (Late st Contact Info) Description 11/11/2024 8:50 AM EDT Consult [facility] [address] [place] [phone] Rashaun Dotson, DO [address] [place] [address] 07/07/2025 9:30 AM EDT Ancillary Procedure [facility] [place] [address] [place] [address] 10/24/2025 9:00 AM EDT Procedure Visit [facility] [address] [place] [address] Ethel Quiroz, PA [address] [place] [address] Health Maintenance Due Date Last Done Comments Pap Smear 10/19/2023 10/18/2020, 12/21/2018 Cervical Cancer Screening 12/22/2023 HPV/Cotest 12/22/2023 12/21/2018 Influenza Vaccine (#1) 2024 , 02/10/2023, 01/06/2021, Additional history exists Mammogram 07/05/2025 07/05/2024, 05/09, 06/02/2023, Additional history exists Goals Goal Patient Goal Type Associated Problems Recent Progress Patient-Stated? Author Help patient manage antidepressant medication Care Plan Patient on antidepressant monitoring plan Natalie Iyer MD, IBCLC Baseline PHQ-9 Care Plan Baseline PHQ-9 Natalie Iyer MD, IBCLC Procedures Procedure Name Priority Date/Time Associated Diagnosis Comments LIPID PANEL Routine 09/06/2024 8:46 AM EDT Encounter for lipid screening for cardiovascular disease BI MAMMOGRAM SCREENING TOMOSYNTHESIS BILATERAL Routine 07/05/2024 4:14 PM EDT Encounter for screening mammogram for malignant neoplasm of breast from Last 3 Months or Most Recently Relevant to Health Maintenance Results * (ABNORMAL) Lipid panel (09/06/2024 8:46 AM EDT) CHOLESTEROL 174 140 - 200 mg/dL 09/06/2024 11:43 AM EDT [facility] Comment: Chol less than 200 mg/dl low risk Chol 201-239 mg/dl borderline risk Chol 240 mg/dl and greater high risk HDL CHOLESTEROL 60 23 - 92 mg/dL 09/06/2024 11:43 AM EDT [facility] Comment: HDL CHOL ATP-III CLASSIFICATION Cardiovascular Risk HDL > or equal to 60 mg/dL LOW HDL < 40 mg/dL HIGH TRIGLYCERIDE W/REFLEX 48 0 - 149 mg/dL 09/06/2024 11:43 AM EDT [facility] Comment: TRIG ATP III CLASSIFICATION TRIG less than 150 mg/dL Normal TRIG 150-199 mg/dL Borderline high TRIG 200-500 mg/dL High TRIG greater than 500 mg/dL Very high Standard traceable to the Center for Disease Conrtrol and Prevention (CDC) test method. LDL CHOLESTEROL,CALCULA BEA 104(H) 0 - 100 mg/dL 09/06/2024 11:43 AM EDT [facility] Comment: LDL ATP III CLASSIFICATION LDL less than 100 mg/dL Optimal LDL 100-129 mg/dL Near or above optimal LDL 130-159 mg/dL Borderline high LDL 160-189 mg/dL High LDL greater than 189 mg/dL Very high VLDL CHOLESTEROL 9 mg/dL 09/07/19 11:43 AM EDT [facility] CHOL/HDL RATIO 2.9 <5.0 09/06/2024 11:43 AM T [facility] Other Topography unknown / Unknown 09/06/2024 8:46 AM EDT 09/06/2024 8:46 AM EDT us Natalie Guillen MD, IBCLC LAB BLOOD ORDERABLES Final Result [facility] Dariana Farr [facility] [place] [address], [facility] [address] [place] [address] * Bilateral screening mammogram with tomosynthesis (07/05/2024 4:14 PM EDT) Anatomical Region Laterality Modality Breast Bilateral Mammography 07/05/2024 4:18 PM EDT Impressions 07/05/2024 4:24 PM EDT Impression: No specific evidence of malignancy seen in either breast. BIRADS 2 - Benign Findings DENSITY: The breasts are heterogeneously dense, which may obscure small masses. FOLLOW-UP: Routine Screening Mammogram ELECTRONICALLY SIGNED BY: Michael Grimm M.D. Narrative 07/05/2024 4:24 PM EDT Examination: BI MAMMOGRAM SCREENING TOMOSYNTHESIS BILATERAL Clinical History: screening Technique: Screening digital mammography study of both breasts was performed with 2-D and 3-D tomosynthesis imaging. Study was compared to the diagnostic mammogram study of the breasts dated 06/02/2023 and ultrasound study of the right breast dated 06/02/2023. Findings: There is no evidence of interval dominant spiculated mass, grouped microcalcifications, or skin thickening which would be suggestive of malignancy. A few benign-appearing calcifications are seen bilaterally. Axillary lymph nodes are noted bilaterally which appear grossly unremarkable. Procedure Note Michael Grimm MD - 07/05/2024 Examination: BI MAMMOGRAM SCREENING TOMOSYNTHESIS BILATERAL Clinical History: screening Technique: Screening digital mammography study of both breasts wasperformed with 2-D and 3-D tomosynthesis imaging. Study was compared tothe diagnostic mammogram study of the breasts dated 06/02/2023 andultrasound study of the right breast dated 06/02/2023. Findings: There is no evidence of interval dominant spiculated mass,grouped microcalcifications, or skin thickening which would be suggestiveof malignancy. A few benign-appearing calcifications are seen bilaterally. Axillary lymphnodes are noted bilaterally which appear grossly unremarkable. IMPRESSION: Impression: No specific evidence of malignancy seen in either breast. BIRADS 2 - Benign Findings DENSITY: The breasts are heterogeneously dense, which may obscure smallmasses. FOLLOW-UP: Routine Screening Mammogram ELECTRONICALLY SIGNED BY: Michael Grimm M.D. Natalie Guillen MD, IBCLC IMG BI PROCEDURES Fi nal Result from Last 3 Months or Most Recently Relevant to Health Maintenance Additional Health Concerns Active Problems Noted Date Diagnosed Date Patient on antidepressant monitoring plan 2024 Baseline PHQ-9 06/24/2024 Insurance [facility] Address: [facility] [id number] [place] [phone] Care Teams Eye Technician Relationship Specialty Start Date End Date Natalie Guillen MD, IBCLC [address] [place] [address] PCP - General Family Medicine 04/13/24
--- OUTSIDE RECORDS SUMMARY | 2024-10-20 15:17 | XMS_ITS | Encounter Summary ---
Author Organization [facility] Address [address] [facility] [place] [address] Care Team Providers Care Public Works Supervisor Name Role Phone Jaci Golden MD Primary Care Provider [phone] Natalie Guillen MD, IBCLC Primary Care Provid er Encounter Details Date Type Department Care Team (Late st Contact Info) Description 05/06/2023 Abstract [facility] [address] [place] [phone] Erika Burrell, ORDER EDITOR [address] [place] [address] Social History Tobacco Use Types Packs/Day Years Used Date Smoking Tobacco: Never Smokeless Tobacco: Never Tobacco Cessation:Counseling Given: Not Answered Alcohol Use Standard Drinks/Week Comments Yes 5 (1 standard drink = 0.6 oz pur e alcohol) Humiliation, Afraid, Rape, and Kick questionnair e [...] the phone with family, friends, or neighbors? More than three times a week 02/03/2023 How often do you get togethe r with friends or relatives? Twice a week 02/03/2023 How often do you attend chur ch or zoroastrianism services? Never 02/03/2023 Do you belong to any clubs o r organizations such as baptism groups, unions, fraternal or athletic groups, or school groups? Yes 02/03/2023 How often do you attend meet ings of the clubs or organizations you belong to? More than 4 times per year 02/03/2023 Are you , , di vorced, , never , or living with a partner? 02/03/2023 AUDIT-C Answer Date Recorded Q1: How often do you have a drink containing alcohol? 4 or more times a week 02/03/2023 Q2: How many drinks containi ng alcohol do you have on a typical day when you are drinking? 1 or 2 Q3: How often do you have si x or more drinks on one occasion? Never 02/03/2023 Overall Financial Resource Strain (CARDIA) Answe r Date Recorded How hard is it for you to pa y for the very basics like food, housing, medical care, and heating? Not hard at all 02/03/2023 [facility] - Occupational Stress Questionnaire Answer Date Recorded Do you feel stress - tense, restless, nervous, or anxious, or unable to sleep at night because your mind is troubled all the time - these days? Only a little 02/03/2023 Exercise Vital Sign Answer Date Recorde d On average, how many days pe r week do you engage in moderate to strenuous exercise (like a brisk walk)? 2 days 02/03/2023 On average, how many minutes do you engage in exercise at this level? 20 min 02/03/2023 Hunger Vital Sign Answer Date Recorded Within the past 12 months, y ou worried that your food would run out before you got the money to buy more. Never true 02/04/20 23 Within the past 12 months, t he food you bought just didn't last and you didn't have money to get more. Never true 02/03/2023 PRAPARE - Transportation Answer Date Re corded In the past 12 months, has l ack of transportation kept you from medical appointments or from getting medications? No 01/07 In the past 12 months, has l ack of transportation kept you from meetings, work, or from getting things needed for daily living? No 02/03/2023 Housing Stability Vital Sign Answer [...] place to sleep or slept in a custodial (including now)? No 02/03/2023 Comments Unknown Sex and Gender Information Value [...] AM EDT Consult [facility] [address] [place] [address] Rashaun Dotson DO [address] [place], [place] [id number] 07/07/2025 9:30 AM EDT Ancillary Procedure [facility] [place] [address] [place] [address] 10/24/2025 9:00 AM EDT Procedure Visit [facility] [address] [place] [address] Ethel Quiroz PA [address] [place] [address] documented as of this encounter Visit Diagnoses Not on filedocumented in this encounter Care Teams Public Works Supervisor Relationship Specialty Start Date End Date Jaci Golden MD [address] [place] [address] PCP - General Family Medicine 08/13/22 04/12/24 Natalie Guillen MD, IBCLC [address] [place] [address] PCP - General Family Medicine 04/13/24 documented as of this encounter
--- OUTSIDE RECORDS SUMMARY | 2024-10-20 15:17 | XMS_ITS | Encounter Summary ---
Author Organization [facility] Address [address] [place] [address] Care Team Providers Care Gun Number Name Role Phone Erika Burrell MAKEUP ARTISTRY INSTRUCTOR Unavailable [phone] Jaci Golden MD Primary Care Provider [phone] Natalie Guillen MD, IBCLC Primary Care Provid er Encounter Details Date Type Department Care Team (Late st Contact Info) Description 12/26/2022 Clinisync Result Encounter [facility] External Department Unsolicited Marsha Dotson, DO [address] [place] [address] Social History Tobacco Use Types Packs/Day Years [...] AM EDT Consult [facility] [address] [place] [phone] Marsha Dotson, [address] [place] [address] 07/07/2025 9:30 AM EDT Ancillary Procedure [facility] [place] [address] [place] [address] 10/24/2025 9:00 AM EDT Procedure Visit [facility] [address] [place] [address] Ethel Quiroz PA [address], [place] [address] documented as of this encounter Procedures Procedure Name Priority Date/Time Associated Diagnosis Comments US PELVIS W/ TRANSVAGINAL 12/26/2022 12:55 PM EDT documented in this encounter Results * US PELVIS W/ TRANSVAGINAL (12/26/2022 12:55 PM EDT) Anatomical Region Laterality Modality Other 12/26/2022 12:5 5 PM EDT Narrative 12/26/2022 12:55 PM EDT The [address] [address] Ultrasound Report Signed Patient: ILDA ISRAEL MR#: [id number] : 1985 Acct:[id number] Age/Sex: 37 / F ADM Date: 12/26/22 Loc: US Attending Dr: Marsha Dotson D.O. Ordering Physician: Marsha Dotson D.O. Date of Service: 12/26/22 Procedure(s): US pelvis w/ transvaginal Accession Number(s): [id number] cc: Marsha Dotson D.O.; Physician,Non-Staff M.D. The [address] [id number] Patient Name: ILDA ISRAEL MRN: [id number] date: 1985 Sex: F Assigned Patient Location: US Current Patient Location: US Accession/Order Number: [id number] Exam Date: 12/26/2022 11:08 Report Date: 12/26/2022 12:55 At the request of: MARSHA DOTSON Procedure: US pelvis w/ transvaginal EXAMINATION: US pelvis w/ transvaginal HISTORY: Irregular Menstrual Cycle N92.6 ; breakthrough bleeding; evaluate IUD placement COMPARISON: Ultrasound pelvis 11/26/2021 TECHNIQUE: Transabdominal and/or transvaginal sonographic examination was performed as indicated by examination type. FINDINGS: UTERUS: Obliquely positioned IUD within cervix and lower uterine segment. Normal size, contour, and echotexture of the uterus. Uterus size: 7.9 x 4.6 x 4.0 cm ENDOMETRIUM: Normal homogeneous appearance. Endometrial thickness: 4 mm RIGHT OVARY: Normal size and appearance. Duplex Doppler demonstrates normal waveform and flow; resistive index 0.6. Ovary size: 3.6 x 2.7 x 1.6 cm LEFT OVARY: Normal size and appearance. Duplex Doppler demonstrates normal waveform and flow; resistive index 0.6. Ovary size: 3.9 x 2.1 x 1.4 cm CUL-DE-SAC: Unremarkable. No significant free fluid. BLADDER: Unremarkable. OTHER: Prominent vessels within left pelvis; possibly pelvic vascular congestion. US/US pelvis w/ transvaginal IMPRESSION: 1. Patient's IUD is positioned obliquely within the cervix and lower uterine segments which may contribute patient's symptoms. Electronically authenticated by: DARNELL MERRILL Date: 12/26/2022 12:55 Dictated By: Darnell Merrill M.D. Signed By: 12/26/22 1257 DD/ 1255 TD/TT: [employer] Worker: Procedure Note Radiology, Radiologist, - 12/27/2022 [place] [address] Ultrasound Report Signed Patient: ILDA ISRAEL#: [id number] : 1985Acct:[id number] Age/Sex: 37 / FADM Date: 12/26/22 Loc: US Attending Dr: Marsha Dotson D.O. Ordering Physician: Marsha Dotson D.O. Date of Service: 12/26/22 Procedure(s): US pelvis w/ transvaginal Accession Number(s): [id number] cc: Marsha Dotson D.O.; Physician,Non-Staff MAkhil The [place] [id number] Patient Name: ILDA ISRAEL MRN: [id number] date: 1985 Sex: F Assigned Patient Location: US Current Patient Location: US Accession/Order Number: [id number] Exam Date: 12/26/2022 11:08 Report Date: 12/26/2022 12:55 At the request of: MARSHA DOTSON Procedure: US pelvis w/ transvaginal EXAMINATION: US pelvis w/ transvaginal HISTORY: Irregular Menstrual Cycle N92.6 ; breakthrough bleeding; evaluateIUD placement COMPARISON: Ultrasound pelvis 11/26/2021 TECHNIQUE: Transabdominal and/or transvaginal sonographic examination was performed as indicated by examination type. FINDINGS: UTERUS: Obliquely positioned IUD within cervix and lower uterine segment. Normal size, contour, and echotexture of the uterus. Uterus size: 7.9 x4.6 x 4.0 cm ENDOMETRIUM: Normal homogeneous appearance. Endometrial thickness: 4 mm RIGHT OVARY: Normal size and appearance. Duplex Doppler demonstratesnormal waveform and flow; resistive index 0.6. Ovary size: 3.6 x 2.7 x 1.6 cm LEFT OVARY: Normal size and appearance. Duplex Doppler demonstrates normal waveform and flow; resistive index 0.6. Ovary size: 3.9 x 2.1 x 1.4 cm CUL-DE-SAC: Unremarkable. No significant free fluid. BLADDER: Unremarkable. OTHER: Prominent vessels within left pelvis; possibly pelvic vascular congestion. US/US pelvis w/ transvaginal IMPRESSION: 1. Patient's IUD is positioned obliquely within the cervix and loweruterine segments which may contribute patient's symptoms. Electronically authenticated by: DARNELL MERRILL Date: 12/26/2022 12:55 Dictated By: Darnell Merrill M.D. Signed By:12/26/22 1257 DD/ 1255 TD/TT: [employer] Worker: us Marsha Dotson DO [facility] Final Result documented in this encounter Visit Diagnoses Not on filedocumented in this encounter Care Teams Gun Number Relationship Specialty Start Date End Date Erika Burrell NP [address] [place] [address] PCP - [employer] 10/05/2204/06 Jaci Golden MD [address] [place] [address] PCP - General Family Medicine 08/13/22 04/12/24 Natalie Guillen MD, IBCLC [address] [place] [address] PCP - General Family Medicine 04/13/24 documented as of this encounter
--- OUTSIDE RECORDS SUMMARY | 2024-10-20 15:17 | XMS_ITS | Encounter Summary ---
Author Organization [facility] Address [address] [facility] [place] [address] Care Team Providers Care Phonograph Cartridge Assembler Name Role Phone Natalie Guillen MD, IBCLC Primary Care Provid er Encounter Details Date Type Department Care Team (Late st Contact Info) Description 10/20/2024 Bamboo flowsheet [facility] [address] [place] [address] Ethel Quiroz PA [address] [place] Social History Tobacco Use Types Packs/Day Years [...] How often do you attend chur or jainism services? Patient declined 04/14/2024 Do you belong to any clubs o r organizations such as yazidi groups, unions, fraternal or athletic groups, or [...] Recorded Patient Health Questionnaire-2 Score 0 06/24/2024 [facility] - Occupational [...] place to sleep or slept in a senior care (including now)? No 02/03/2023 Housing Stability Vital Sign Answer Aman e Recorded In the last 12 months, was t here a time when you were not able to pay the mortgage or rent on time? No 04/14/2024 In the past 12 months, how m any times have you moved where you were living? 0 04/14/2024 At any time in the past 12 m [facility], were you homeless or living in a senior care (including now)? No 04/14/2024 Comments Unknown Sex [...] AM EDT Consult [facility] [address] [place] [address] Rashaun Dotson, DO [address] [place], [place] [id number] 07/07/2025 9:30 AM EDT Ancillary Procedure [facility] [place] [address] [place] [id number] 10/24/2025 9:00 AM EDT Procedure Visit [facility] [address] [place] [address] Ethel Quiroz, PA [address] [place] [address] documented as of this encounter Goals Goal [...] documented as of this encounter Care Teams Phonograph Cartridge Assembler Relationship Specialty Start Date End Date Natalie Guillen MD, IBCLC [address] [place] [address] PCP - General Family Medicine 04/13/24 documented as of this encounter
--- OUTSIDE RECORDS SUMMARY | 2024-10-20 15:17 | XMS_ITS | Encounter Summary ---
Author Organization [facility] Address [address] [place] [address] Care Team Providers Care Mounted Police Officer Name Role Phone Jaci Golden MD Primary Care Provider [phone] Natalie Guillen MD, IBCLC Primary Care Provid er Encounter Details Date Type Department Care Team (Late st Contact Info) Description 01/15/2024 Orders Only [facility] [place] [address] [place] [id number] Rick Reyna MD [address] [place] [address] Social History Tobacco Use Types Packs/Day Years [...] often do you attend chur ch or hindu services? Never 02/03/2023 Do you belong to any clubs o r organizations such as jainism groups, unions, fraternal or athletic groups, or [...] when you are drinking? 1 or 2 3 Q3: How often do you have si x or more drinks on one occasion? Never 02/03/2023 Overall Financial Resource Strain (CARDIA) Answe r Date Recorded How hard is it for you to pa y for the very basics like food, housing, medical care, and heating? Not hard at all 02/03/2023 [facility] [...] place to sleep or slept in a half-way (including now)? No 02/03/2023 Comments Unknown Sex [...] AM EDT Consult [facility] [address] [facility] [place] [address] Rashaun Dotson DO [address] [facility] [address] [place], [place] [id number] 07/07/2025 9:30 AM EDT Ancillary Procedure [facility] [place] [address] [place] [id number] 10/24/2025 9:00 AM EDT Procedure Visit [facility] [address] [facility] [place] [place] [address] Ethel Quiroz PA [address] [facility] [place] [address] documented as of this encounter Procedures Procedure Name Priority Date/Time Associated Diagnosis Comments US THYROID Routine 11/07/2021 2:06 PM EDT documented in this encounter Results * US thyroid (11/07/2021 2:06 PM EDT) Anatomical Region Laterality Modality Head, Neck Ultrasound us Rick Reyna MD IMG US PROCEDURES Final Res ult documented in this encounter Visit Diagnoses Not on filedocumented in this encounter Care Teams Mounted Police Officer Relationship Specialty Start Date End Date Jaci Golden MD [address] [place] [address] PCP - General Family Medicine 08/13/22 04/12/24 Natalie Guillen MD, IBCLC [address] [place] [address] PCP - General Family Medicine 04/13/24 documented as of this encounter
[2024-10-22 14:08] LABS: Age Gdln ACOG Testing Note (.); IGP, Aptima HPV, rfx 16/18,45 Note (.)
== END 2024-10-20 15:14 | disposition home or self-care (01) ==
LOC: LAB 15:13
PROVIDERS: Visit Provider Physician Assistant
DX: Z01.419 Encounter for gynecological examination (general) (routine) without abnormal findings (principal)
CPT/HCPCS: 87624; 88175

== ENCOUNTER 2024-11-26 09:59 | Outpatient (OUT) | payer OTHER, SELFPAY ==
--- NOTE | 2024-11-26 10:58 | PM.PRESUREVA ---
History of Present Illness History of Present Illness Chief complaint: desire sterilization Narrative: Patient presents for presurgical testing. Please see HPI from Dr. Dotson dated November 11, 2024. Review of Systems ROS Narrative Please see ROS from Dr. Dotson dated November 11, 2024. [facility] Medical History (Updated 11/26/24 @ 10:57 by Sandhya Daly NP) Thoracic outlet syndrome ?G54.0 - Brachial plexus disorders (ICD-10) Bronchitis ?J40 - Bronchitis, not specified as acute or chronic (ICD-10) Deep vein thrombosis (2005) ?I82.409 - Acute embolism and thrombosis of unspecified deep veins of unspecified lower extremity (ICD-10) PMDD (premenstrual dysphoric disorder) ?F32.81 - Premenstrual dysphoric disorder (ICD-10) Anxiety ?F41.9 - Anxiety disorder, unspecified (ICD-10) Request for sterilization ?Z30.2 - Encounter for sterilization (ICD-10) Seasonal allergies ?J30.2 - Other seasonal allergic rhinitis (ICD-10) Heartburn ?R12 - Heartburn (ICD-10) Thyroid nodule ?E04.1 - Nontoxic single thyroid nodule (ICD-10) Postoperative nausea and vomiting ?R11.2 - Nausea with vomiting, unspecified (ICD-10) ?Z98.890 - Other specified postprocedural states (ICD-10) Varicose vein of leg ?I83.90 - Asymptomatic varicose veins of unspecified lower extremity (ICD-10) Surgical History (Updated 11/26/24 @ 10:57 by Sandhya Daly NP) H/O resection of rib ?Z98.890 - Other specified postprocedural states (ICD-10) S/P thyroid biopsy ?Z98.890 - Other specified postprocedural states (ICD-10) History of breast biopsy ?Z98.890 - Other specified postprocedural states (ICD-10) H/O vein stripping ?Z98.890 - Other specified postprocedural states (ICD-10) Family History (Updated 11/26/24 @ 10:30 by Sandhya Daly NP) Other Family history of aneurysm Family history of breast cancer Family history of hypertension Family history of myocardial infarction Family history of skin cancer Family history of stroke Social History (Updated 11/26/24 @ 10:24 by Sandhya Daly NP) Within the past year, how often did you have a drink containing alcohol: 2-3 times a week Within the past year, how many standard drinks containing alcohol did you have on a typical day: 3 or 4 Smoking status: Never smoker Non-prescribed substance use: cannabis (any form) 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 Highest level of school completed/degree received: Bachelor's degree Meds Home Medications and Allergies Home Medications ?Medication ?Instructions ?Recorded ?Confirmed ?Type loratadine 10 mg capsule 10 mg PO DAILY 11/26/24 11/26/24 History sertraline 25 mg tablet 25 mg PO DAILY 11/26/24 11/26/24 History Allergies Allergy/AdvReac Type Severity Reaction Status Date / Time avocado Allergy Rash Verified 11/26/24 10:21 banana Allergy Rash Verified 11/26/24 10:21 esomeprazole Allergy Rash Verified 11/26/24 10:21 kiwi Allergy mouth Verified 11/26/24 10:21 swelling nickel Allergy Rash Verified 11/26/24 10:21 nitrofurantoin (From Allergy Rash Verified 11/26/24 10:21 Macrobid) propylene glycol Allergy Rash Verified 11/26/24 10:21 ranitidine (From Zantac) Allergy Rash Verified 11/26/24 10:21 sodium tetrachloropalladate Allergy Anaphylaxis Verified 11/26/24 10:21 hydrate soy Allergy Difficulty Verified 11/26/24 10:21 Breathing venlafaxine (From Effexor) Allergy syncope Verified 11/26/24 10:21 Exam Narrative Exam Narrative: Constitutional: Awake, alert, comfortable, well-appearing, nontoxic, interactive, vital signs as charted Head: Normocephalic, atraumatic Neck: Supple, normal appearance, normal range of motion, no meningeal signs, no lymphadenopathy Respiratory: No respiratory distress, breath sounds clear Cardiovascular: Regular rate and rhythm, strong and regular heart tones Abdomen: Nontender, normal bowel sounds, soft, no CVA tenderness Musculoskeletal: Normal gait, no swelling or edema Skin: No rashes or induration, no lesions, only visible skin inspected Neuro: No neurological deficits, normal sensation Psychiatric: Oriented ?3, normal affect Assessment and Plan Assessment and Plan (1) Request for sterilization: Plan Robot assisted bilateral laparoscopic salpingectomy scheduled with Dr. Dotson December 10, 2024.
== END 2024-11-26 10:00 | disposition home or self-care (01) ==
PROVIDERS: PCP Student in an Organized Health Care Education/Training Program; Visit Provider Obstetrics & Gynecology
DX: Z01.818 Encounter for other preprocedural examination (principal)
CPT/HCPCS: G0463